=== PATIENT | male | born 1985 | race Caucasian/White ===

== ENCOUNTER 2017-05-05 22:18 | Emergency (ER) | payer OTHER ==
[2017-05-05 23:15] LABS: microscopic required? NO
[2017-05-05 23:20] LABS: UA SPECIFIC GRAVITY 1.025 (1.005-1.035); urine erythrocyte NEGATIVE (NEGATIVE)
[2017-05-06 00:33] VITALS: BP 112/87
== END 2017-05-06 00:33 | disposition home or self-care (01) ==
LOC: ED 22:18
PROVIDERS: Emergency Medicine
DX: M51.27 Other intervertebral disc displacement, lumbosacral region (principal); E66.01 Morbid (severe) obesity due to excess calories; Z79.891 Long term (current) use of opiate analgesic
CPT/HCPCS: 36415; J1100; J1885

== ENCOUNTER 2020-11-28 18:52 | Emergency (ER) | payer OTHER, SELFPAY ==
[~2020-11-28] VITALS: Ht 177.8 cm; Wt 113.4 kg
[2020-11-28 18:59] VITALS: Ht 177.8 cm; Wt 113.4 kg
[2020-11-28 19:36] LABS: UA SPECIFIC GRAVITY >=1.030 (1.005-1.035); microscopic required? YES; urine erythrocyte NEGATIVE (NEGATIVE)
[2020-11-28 19:38] LABS: BASOPHIL % 0.3 % (0.2-1.5); PLATELET COUNT 258 x10^3mcL (152-348); RED CELL DISTRIBUTION WIDTH 13.7 % (12.1-16.2)
[2020-11-28 19:49] LABS: CALCIUM 9.3 mg/dL (8.5-10.1); CARBON DIOXIDE 25.3 mmol/L (21-32); CHLORIDE SERUM 99 mmol/L (98-107); CREATININE SERUM 0.8 mg/dL (0.7-1.3); GFR1 > 60 mL/min; GLUCOSE SERUM 298 mg/dL (74-106); SODIUM SERUM 133 mmol/L (136-145)
[2020-11-28 19:53] LABS: ALBUMIN 3.9 g/dL (3.4-5.0); ALKALINE PHOSPHATASE 74 U/L (46-116); ALT/SGPT 57 U/L (16-63); AST/SGOT 31 U/L (15-37); BILIRUBIN TOTAL 0.4 mg/dL (0.20-1.00); LIPASE 111 IU/L (73-393); TOTAL PROTEIN, SERUM 7.8 g/dL (6.4-8.2)
[2020-11-28 23:48] VITALS: BP 113/70
== END 2020-11-28 23:48 | disposition home or self-care (01) ==
LOC: ED 18:52
PROVIDERS: Emergency Medicine
DX: R10.10 Upper abdominal pain, unspecified (principal); R11.10 Vomiting, unspecified; R19.7 Diarrhea, unspecified; E11.9 Type 2 diabetes mellitus without complications
CPT/HCPCS: J2270; J2405